=== PATIENT | male | born 1950 | race Caucasian/White ===

== ENCOUNTER → 2023-11-15 07:12 | Outpatient (REF) | payer MEDICARE, SELFPAY | LOC: RAD 07:12 | PROVIDERS: ATTENDING PHYSICIAN Family Medicine | DX: Z87.891 Personal history of nicotine dependence (principal) | CPT/HCPCS: 71271 ==

== ENCOUNTER → 2024-01-03 07:37 | Outpatient (REF) | payer MEDICARE, SELFPAY | LOC: DHVS 07:37 | PROVIDERS: ATTENDING PHYSICIAN Surgery Vascular Surgery; FAMILY PHYSICIAN Family Medicine | DX: I73.9 Peripheral vascular disease, unspecified (principal) | CPT/HCPCS: 93922; 93925 ==

== ENCOUNTER 2025-02-25 06:17 | Day surgery (SDC) | payer MEDICARE, SELFPAY ==
[2025-02-25 07:29] LABS: Glucose - Point of Care 120 mg/dl (70-99)
== END 2025-02-25 09:50 | disposition home or self-care (01) ==
LOC: GI 06:17
PROVIDERS: ATTENDING PHYSICIAN Internal Medicine Gastroenterology
DX: Z12.11 Encounter for screening for malignant neoplasm of colon (principal); R19.5 Other fecal abnormalities; K64.8 Other hemorrhoids; D12.3 Benign neoplasm of transverse colon; K63.5 Polyp of colon; K62.1 Rectal polyp
CPT/HCPCS: 45385; 45380; 88305; 82962